=== PATIENT | female | born 1970 | race African-American/Black ===

== ENCOUNTER 2017-07-19 11:08 | Observation (INO) ==
--- NOTE | 2017-07-19 12:07 | XRay Report ---
History: Shortness of breath Date: 07/19/2017 Study: Chest x-ray PA and lateral Comparison exam: November 02, 2013 The cardiomediastinal silhouette and pulmonary vasculature are unremarkable. The lungs and pleural spaces are clear. The osseous structures are unremarkable. Surgical clips overlie the right upper quadrant as before. Impression: No acute cardiopulmonary process. No significant interval change PROCEDURE INTERPRETED AT [facility] DEPARTMENT OF RADIOLOGY Final Report Signed by: Dr. Hina Carroll
[2017-07-19] MEDS ORDERED: ASPIRIN 325 MG TABLET PO STA (12:23)
--- NOTE | 2017-07-19 12:28 | Emergency Department Note ---
Arrival - Arrival Chief Complaint: Shortness of Breath Stated Complaint: SOB,leg,arm and chest pain,weak ED Nursing Triage Note: Pt c/o SOB worse with exertion, weakness, chest heaviness, right arm pain and some nausea x 2 wks. Mode of Arrival: Ambulatory Limitations: No Limitations Source: Patient, RN Notes Reviewed Time Seen by Provider: 07/19/17 12:23 - History of Present Illness HPI Narrative: Patient is a 46-year-old black female routinely followed by Dr. Houston who is seen today complaining of a two-week history of left-sided chest pain worse with exertion. Patient does have some associated diaphoresis. She denies any nausea or vomiting. She does have some associated shortness of breath. Patient localizes the pain to the left anterior chest wall. Pain does not radiate. Onset (ago): week(s) (2) Consistency: intermittent Severity: moderate Quality: sharp Date of Last Menstrual Period: 2 wks ago Allergies/Adverse Reactions: Allergies Allergy/AdvReac Type Severity Reaction Status Date / Time hydrocodone Allergy ITCHING Verified 08/28/16 15:51 niacin Allergy ITCHING Verified 08/28/16 15:51 Home Medications: Home Medications Medication Instructions Recorded Confirmed Type No Known Home Medications [No 07/19/17 07/19/17 History Known Home Medications] Review of System - Review of System 12 point system: reviewed and no additional remarkable complaints except as stated - Review of System Constitutional: Absent: chills, fever Respiratory: Absent: cough Cardiovascular: Present: as per HPI Gastrointestinal: Absent: nausea, vomiting Medical,Surgical,& Family Hx - Medical History Cardio: History of: Hypertension Endocrine: History of: Dyslipidemia Musculoskeletal: History of: Back/Neck Problems - Social History Smoking Status: Current every day smoker Functional capacity: independent ambulation Exam Vital Signs: Vital Signs Temperature 97.0 F L 07/19/17 11:22 Pulse Rate 85 07/19/17 11:22 Respiratory Rate 16 07/19/17 11:22 Blood Pressure 156/92 07/19/17 11:22 O2 Sat by Pulse Oximetry 100 07/19/17 11:22 GENERAL: This is a well-nourished well-developed black female in no apparent distress. VITAL SIGNS: Reviewed HEENT: Head is atraumatic and normocephalic. Pupils are equal round react to light. Extraocular movements are intact. Oropharynx is benign with moist mucous membranes. NECK: Neck is soft and supple without tenderness. There are no masses. There is no lymphadenopathy. LUNGS: Lungs are clear to auscultation. Chest rises symmetrically. There is minimal tenderness to palpation in the anterior chest wall on the left. CV: Heart is regular rate and rhythm without murmurs rubs or gallops. ABDOMEN: Abdomen is soft, nontender to palpation. There are no abdominal abnormal masses palpated. There is no organomegaly. Bowel sounds are present and active. SKIN: Skin is warm and dry. No rash. EXTREMITIES: Patient has full range of motion without tenderness. There is no pedal edema. NEUROLOGIC: Awake alert and oriented 4. Cranial nerves II through XII are grossly intact. Motor is 5 over 5 in all extremities bilaterally. Course - Consultations Consultation #1: Discussed with Dr. Houston. Patient will be admitted to her service. Initial orders written for her. She will assume patient's care upon arrival to the [facility]. Time: 15:12 Results - Labs CBC & BMP: 07/19/17 13:08 Lab Results: I have reviewed the patients labs Labs: Laboratory Tests 07/19/17 07/19/17 13:08 13:10 Troponin I < 0.015 Urine Opiates Screen Negative Ur Barbiturates Screen Negative Ur Phencyclidine Scrn Negative U Amphetamine/Methamph Negative U Benzodiazepines Scrn Negative U Cocaine Metab Screen Negative U Cannabinoids Screen Positive H - EKG EKG results: interpreted by ERMD - Impressions EKG: Sinus tachycardia with a rate of 103, normal ST T waves, normal axis. - Diagnostic Findings Procedure: Chest x-ray: image reviewed by me (No infiltrates, no pleural effusions.) Disposition Clinical Impression: Chest pain, Nicotine addiction, Essential hypertension Case discussed with: patient Disposition: Still a Patient Condition: Stable Time of Disposition: 15:07
[2017-07-19 13:26] LABS: Apearance,Urine CLEAR (Clear); Bilirubin,Urine Negative (Negative); Blood, Urine Small mg/dL (Negative); Glucose,Urine (UA) Negative (Negative); Ketones,Urine Negative (Negative); Nitrite,Urine Negative (Negative); Protein,Urine Negative; Squamous Epithelial Cell,Urine Occasional /HPF (0-10); Urine Color Straw (Yellow); Urine Specific Gravity 1.003 (1.001-1.035); Urine Urobilinogen < 2.0 EU/DL (0.2-1.0); WBC,Urine <1 /HPF (0-6)
[2017-07-19 13:37] LABS: Barbiturates Screen,Urine Negative (Negative); Benzodiazepines Screen,Urine Negative (Negative); Cannabinoid Screen,Urine Positive (Negative); Opiate Screen,Urine Negative (Negative); Phencyclidine Screen,Urine Negative (Negative)
[2017-07-19 13:56] LABS: INR 1.1; PT Patient Result 11.1 SECS; Partial Thromboplastin Time 27.4 SECS (0-40)
[2017-07-19 14:13] LABS: Alanine Aminotransferase 30 U/L (13-56); Albumin 3.4 G/DL (3.4-5.0); Alkaline Phosphatase 80 U/L (45-117); Aspartate Amino Transferase 23 U/L (0-37); Bilirubin,Total < 0.39 MG/DL (0.2-1.0); Blood Urea Nitrogen 7 MG/DL (7-18); Calcium 9.5 MG/DL (8.5-10.1); Glucose 80 MG/DL (74-106); Osmolality,Calculated 275.4 MOS/KG (273-304); Sodium 140 MMOL/L (136-145); Total Protein 7.8 G/DL (6.4-8.3)
[2017-07-19] MEDS ORDERED: ASPIRIN 325 MG TABLET ONE (14:25)
--- NOTE | 2017-07-19 15:52 | Order Completion Report ---
See report scanned to EMR
--- NOTE | 2017-07-19 16:43 | Hospitalist History & Physical ---
Assessment and Plan - Time spent with patient Time spent with patient: Greater than 30 minutes (1) Chest pain Status: Acute Assessment and plan: 46-year-old -[place] female with history of nicotine abuse and anxiety admitted by the hospitalist service with complaints of intermittent chest pain associated with shortness of breath. Patient will be admitted to telemetry and get serial EKG and cardiac enzymes. Consult cardiology for possible stress test. Will also treat patient's anxiety as well and have her follow-up with physician at [facility] upon discharge. Dr. Silverio was seen and examine patient and further recommendations to follow. Current Visit: Yes (2) Nicotine addiction Status: Acute Current Visit: Yes History of Present Illness Chief complaint: Chest tightness History of present illness: Ms. Santos is a 46 year old -[place] female with history of nicotine abuse presenting to the ED with a 2 week history of intermittent chest pain associated with shortness of breath and sweating. Patient states approximately 2 weeks ago she started having some intermittent chest pain with any sort of activity. This was associated with shortness of breath, diaphoresis, bilateral hand and finger tingling, and bilateral lower extremity pain and weakness. Patient states the last chest pain she had was Wednesday but since then she describes it as chest tightness like somebody is sitting on her chest. She states she is also having some issues with anxiety over the last month due to her job. She used to see Dr. Houston at [facility] before she moved to the [facility] clinic. She states Dr. Houston had given her something for anxiety approximately a year ago but she does not remember what it was. Patient is decreased to 4 cigarettes per day from approximately 1 pack per day and she states her father of a heart attack at 47. Upon exam patient is visibly upset and crying. Patient is afebrile and vital signs are stable, coags okay, BMP okay with negative troponins, UA is negative, tox screen shows positive for marijuana. Patient's chest x-ray shows no acute process in her EKG shows sinus tachycardia with left atrial enlargement. Upon exam she is in normal sinus rhythm with heart rate in the 70s. After discussion with Dr. Brandt the ED physician and Dr. Reina the admitting hospitalist, it was agreed patient would be admitted for further evaluation and treatment. Patient has no home medications and she is a full code. Home Medications Medication Instructions Recorded Confirmed Type No Known Home Medications [No 07/19/17 07/19/17 History Known Home Medications] Allergies Allergy/AdvReac Type Severity Reaction Status Date / Time hydrocodone Allergy ITCHING Verified 08/28/16 15:51 niacin Allergy ITCHING Verified 08/28/16 15:51 Medical,Surgical,& Family Hx - Medical History Cardio: History of: Hypertension Endocrine: History of: Dyslipidemia Musculoskeletal: History of: Back/Neck Problems - Surgical History Abdominal Surgeries: Patient denies: Abdominal Surgery - Family History Family History: Reports;: Family Heart Disease - Social History Smoking Status: Current every day smoker Have you smoked in the last 12 months: Yes Frequency of Alcohol Use: None Type of Drug Use: Marijuana Marital Status: Single Lives With:: Alone Functional capacity: independent ambulation 12 point system: reviewed and no additional remarkable complaints except as stated Exam - Constitutional Vitals: Period Temp Pulse Resp BP Sys/Simmons Pulse Ox Last 24 Hr 97.0 F-97.0 F 71-86 16-20 132-156/65-92 99-100 Exam: Constitutional System: Mild distress. Actively currently No tremulousness. Head: Normocephalic, atraumatic. Ears, Nose and Throat System: No evidence of Otitis or Mastoiditis. No epistaxis or discharge Eyes System: Pupils equal, round, and reactive. Extraocular muscles intact. Neck: Supple, without adenopathy, No jugular venous distention. No thyromegaly, neck mass, or prior surgery apparent. Respiratory System: Chest clear to auscultation. Cardiovascular System: Heart with regular rate and rhythm. No murmur. GI System: Abdomen soft, nontender. Normo active bowel sounds present. Musculoskeletal System: limbs with no pedal edema. Full distal pulses. Neurological System: No discernable sensory deficit. No aphasia Psychiatric System: Conversation is rational Results - Labs CBC & BMP: 07/19/17 13:08 Lab Results: I have reviewed the past 24 hour labs - EKG EKG results: sinus rhythm - Diagnostic Findings Procedure: Chest x-ray: report reviewed by me (No acute process)
[2017-07-19] MEDS ORDERED: ONDANSETRON 4 MG/2 ML VIAL IV PRN (18:13)
[2017-07-19] MEDS ORDERED: ENOXAPARIN 40 MG/0.4 ML SYRINGE SUBCUT SCH (18:13)
[2017-07-19] MEDS ORDERED: ACETAMINOPHEN 325 MG TABLET PO PRN (18:13)
[2017-07-19] MEDS ORDERED: NITROGLYCERIN SL 0.4 MG TABLET SL PRN (18:13)
[2017-07-19] MEDS ORDERED: LORazepam 0.5 MG TABLET PO PRN (18:13)
[2017-07-19 20:50] LABS: Basophils % 0.1 % (0.0-0.8); Eosinophils # 0.2 10*3/uL (0.0-0.87); Eosinophils % 2.2 % (0.00-10.9); Hematocrit 30.4 VOL% (35.7-47.0); Hemoglobin 10.1 GM/DL (12.0-16.0); Immature Granulocytes % 0.3 %; Immature Granulocytes Absolute 0.02 #; Lymphocytes # 2.4 10*3/uL (1.4-4.0); Lymphocytes % 31.7 % (21.3-54.2); Mean Corpuscular HGB Conc 33.2 GM/DL (32-36); Mean Corpuscular Hemoglobin 28 PG (27-34); Mean Corpuscular Volume 84.7 FL (87-102); Monocytes # 0.9 10*3/uL (0.11-0.8); Neutrophils % 53.7 % (38.7-73.9); Platelet Count 329 T/CUMM (130-400); Red Blood Count 3.59 MC/CUMM (3.8-5.5); Red Cell Distribution Width 16.7 % (9.3-17.3); White Blood Count 7.4 T/CUMM (4-12)
[2017-07-19] MEDS: NICOTINE 21 MG/24 HR PATCH TRANSDERM SCH (21:20)
[2017-07-20 07:02] LABS: Cholesterol 167 MG/DL (50-200); Free T4 (Free Thyroxine) 1.91 NG/DL (0.76-1.46); HDL Cholesterol 36 MG/DL (40-60); Risk Ratio 4.64; Thyroid Stimulating Hormone < 0.005 uIU/ml (0.358-3.74); Triglycerides 76 MG/DL (2-150); VLDL CHOLESTEROL 15.2 MG/DL
[2017-07-20] MEDS ORDERED: ASPIRIN EC 325 MG TABLET PO SCH ×2 (09:00→17:40)
[2017-07-20] MEDS ORDERED: PANTOPRAZOLE 40 MG TABLET PO SCH (09:00)
[2017-07-20] MEDS: NICOTINE 21 MG/24 HR PATCH TRANSDERM SCH (09:08)
[2017-07-20] MEDS ORDERED: PROPRANOLOL 20 MG TABLET PO SCH (12:30)
[2017-07-20 16:47] VITALS: BP 136/76
--- NOTE | 2017-07-20 17:39 | Order Completion Report ---
See report scanned to EMR
--- NOTE | 2017-07-20 17:39 | Cardiology Consult Note ---
Derek Hoffman Lesley, SANDY, am scribing for, and in the presence of, Mian Ventura MD 17:39. Assessment and Plan - Time spent with patient Time spent with patient: Greater than 30 minutes (Record review, assessment, document) (1) Anemia Status: Acute Assessment and plan: SEE PLAN LISTED BELOW Current Visit: Yes (2) Chest pain Status: Acute Assessment and plan: SEE PLAN LISTED BELOW Current Visit: Yes (3) Essential hypertension Status: Chronic Assessment and plan: SEE PLAN LISTED BELOW Current Visit: Yes (4) Nicotine addiction Status: Chronic Assessment and plan: SEE PLAN LISTED BELOW Current Visit: Yes (5) Hyperthyroidism Status: Acute Assessment and plan: SEE PLAN LISTED BELOW Current Visit: Yes (6) Dyslipidemia Status: Chronic Assessment and plan: SEE PLAN LISTED BELOW Current Visit: Yes History of Present Illness - Data of Consult Patient: new to practice Consult date: 07/20/17 Requesting Physician: Shreyas Silverio - Consult Narrative Reason for consult: chest pain History of present illness: [employer]ER: Dr. Ventura ([facility]) Ms. Santos is a 46 year old BF, who presents to the ER with complaints of chest tightness and heaviness that started 2 weeks ago. She reports chest heaviness and tightness that comes and goes, and worsens with exertion. She states symptoms improve with rest. She associates the episodes with "feeling hot" and increased sweating particularly in her hands, she also complains of heart palpitations, worsening panic attacks, fatigue, and nausea for the last 2 weeks. She does relate increased stress at work recently. She states she eats ice constantly to cool off, especially while she is at work. She also notes leg weakness at times while ambulating, she does not associate this with these episodes. She denies cardiac history, but does have a family history of coronary artery disease. Her dad had an TN in his 40s and of an TN at age 53. Her mom has a pacemaker and possible thyroid issues, her brother has heart disease. Past medical history includes hypertension, dyslipidemia, chronic low back pain, anxiety. She states she stopped her medications for hypertension and dyslipidemia last year after significant weight loss. Past surgical includes cholecystectomy, tubal ligation, section. She notes a 20-pack -year history of smoking, denies alcohol use, denies drug use. Cardiac risk factors include smoking, overweight, sedentary lifestyle, significant family history. The patient was interviewed and examined on telemetry floor this morning. No acute distress noted, she denies chest tightness or heaviness since admission. Cardiac biomarkers have remained negative, no ischemic changes on EKGs. Labs reveal anemia, with Hgb 10 and Hct 30, pt. denies a history of anemia. Blood pressure has remained normal, other than being slightly elevated upon arrival to ER. Lipid panel is unremarkable. TSH is low and free T4 elevated, no history of hyperthyroidism reported by the patient. UDS positive for THC. Otherwise labs unremarkable. Plan is to obtain an echocardiogram and initiate low-dose propranolol for symptom management. IMPRESSION AND PLAN: CHEST PAIN - resolved, cardiac biomarkers negative, EKGs without ischemic changes. Low suspicion for ACS. HYPERTHYROIDISM - new onset, likely contributing to symptomatology. Start propranolol 20 mg twice daily, may titrate as an outpatient. No evidence of cardiomyopathy ANEMIA - new onset HYPERTENSION - she stopped meds after losing weight, this is controlled. DYSLIPIDEMIA - improved after weight loss. TOBACCO ABUSE - merits of smoking cessation have been discussed and encouraged with the patient. Please call with further questions. If the chest pain recurs, an outpatient stress test may be considered, please call [facility] in this case to set up an appointment. CC: Petar Houston MD - Home Medications and Allergies Home Medications: Home Medications Medication Instructions Recorded Confirmed Type No Known Home Medications [No 07/19/17 07/19/17 History Known Home Medications] Allergies/Adverse Reactions: Allergies Allergy/AdvReac Type Severity Reaction Status Date / Time hydrocodone Allergy ITCHING Verified 08/28/16 15:51 niacin Allergy ITCHING Verified 08/28/16 15:51 - Constitutional Constitutional: Present: excessive sweating, fatigue, lethargy, weakness. Absent: anorexia, chills - EENT Nose, mouth and throat: Absent: dysphagia, epistaxis - Cardiovascular Cardiovascular: Present: chest pain with activity, diaphoresis, palpitations. Absent: chest pain at rest, dyspnea, dyspnea on exertion, edema, radiating jaw, neck or arm pain, lightheadedness - Respiratory Respiratory: Absent: cough, dyspnea, hemoptysis, dyspnea on exertion - Gastrointestinal Gastrointestinal: Present: nausea. Absent: abdominal pain, change in bowel habits, coffee ground emesis, dyspepsia, dysphagia, hematemesis, hematochezia, melena, vomiting - Genitourinary Genitourinary: Absent: difficulty urinating - Musculoskeletal Musculoskeletal: Present: back pain - Neurological Neurological: Absent: abnormal gait, abnormal speech, behavioral changes, confusion, syncope - Psychiatric Psychiatric: Present: anxiety - Endocrine Endocrine: Present: fatigue, heat intolerance - Hematologic/Lymphatic Hematologic/Lymphatic: Absent: easy bleeding Medical,Surgical,& Family Hx - Medical History Cardio: History of: Hypertension Psychological: History of: Anxiety Disorders Endocrine: History of: Dyslipidemia Musculoskeletal: History of: Back/Neck Problems Other: History of: Miscellaneous Medical Problems - Surgical History Thoracic Surgeries: Patient denies;: Organ Transplant Abdominal Surgeries: Surgical HX of: Cholecystectomy Reproductive Surgeries: Surgical HX of;: Section, Tubal Ligation Patient denies;: Gynecologic Surgery - Family History Family History: Reports;: Family Cancer (breast cancer, aunt), Family Heart Disease, Family Hypertension (mother) - Social History Smoking Status: Current every day smoker Have you smoked in the last 12 months: Yes Time spent discussing smoking cessation with patient: 3 to 10 minutes Frequency of Alcohol Use: None Type of Drug Use: Marijuana Functional capacity: independent ambulation Physical Examination Vital Signs Temp Pulse Resp BP Pulse Ox 97.0 F L 85 16 156/92 100 07/19/17 11:22 07/19/17 11:22 07/19/17 11:22 07/19/17 11:22 07/19/17 11:22 Exam: General: Appears well with no apparent distress. Pleasant and cooperative. Appears comfortable. HEENT: PERRL, normocephalic, atraumatic. Mucous membranes moist. No jaundice noted. Conjunctiva moist and clear, sclerae anicteric. Neck: No JVD, no thyromegaly no lymphadenopathy noted. No carotid bruit appreciated. Cardiac: Regular rate and rhythm. No murmur rub or gallop. PMI is nondisplaced. Lungs: Clear to auscultation without accessory muscle use to assist the respiratory pattern. No oxygen required. Abdomen: Soft, bowel sounds normoactive. Nontender and nondistended. No abdominal bruit or thrill noted. No masses noted. Musculoskeletal: No fluid collection. Full range of motion is noted. Extremities: No clubbing, cyanosis noted. No edema noted. Upper extremity pulses 2+. Lower extremity pulses 2+. Capillary refill less than 3 seconds. Skin: Warm and dry. No unusual lesions or rashes. No skin breakdown appreciated. Neuro: Awake, alert and oriented 3. Moves all extremities well without hemiparesis or paralysis. No essential tremor is appreciated. Result/EKG - Labs CBC & BMP: 07/19/17 20:13 07/19/17 13:08 Lab Results: I have reviewed the past 24 hour labs Labs: Laboratory Results - last 24 hr 07/19/17 07/19/17 07/19/17 13:08 13:08 13:08 WBC RBC Hgb Hct MCV MCH MCHC RDW Plt Count MPV Neut % (Auto) Lymph % (Auto) Barber % (Auto) Eos % (Auto) Baso % (Auto) Neut # (Auto) Lymph # (Auto) Barber # (Auto) Eos # (Auto) Baso # (Auto) Immature Gran % Nucleated RBC % Immature Gran # Nucleated RBCs # Immature Plt Fraction INR 1.1 PT Patient/Control Mix 11.1 Circ Anticoag PTT 27.4 Sodium 140 Potassium 4.0 Chloride 108 H Carbon Dioxide 26 Anion Gap 10.0 BUN 7 Creatinine 0.70 GFR Calculation 131 BUN/Creatinine Ratio 10.00 Glucose 80 Calculated Osmolality 275.4 Calcium 9.5 Total Bilirubin < 0.39 AST 23 ALT 30 Alkaline Phosphatase 80 Troponin I < 0.015 Total Protein 7.8 Albumin 3.4 Globulin 4.4 H Albumin/Globulin Ratio 0.7 L Triglycerides Cholesterol LDL Cholesterol VLDL Cholesterol HDL Cholesterol Heart Disease Risk Ratio Free T4 TSH 3rd Generation Urine Color Urine Appearance Urine pH Ur Specific [place] Urine Protein Urine Glucose (UA) Urine Ketones Urine Blood Urine Nitrate Urine Bilirubin Urine Urobilinogen Urine Leukocytes Urine WBC Ur Squamous Epith Cells Ur Culture Indicated? Urine Opiates Screen Ur Barbiturates Screen Ur Phencyclidine Scrn U Amphetamine/Methamph U Benzodiazepines Scrn U Cocaine Metab Screen U Cannabinoids Screen 07/19/17 07/19/17 07/19/17 13:10 13:10 16:18 WBC RBC Hgb Hct MCV MCH MCHC RDW Plt Count MPV Neut % (Auto) Lymph % (Auto) Barber % (Auto) Eos % (Auto) Baso % (Auto) Neut # (Auto) Lymph # (Auto) Barber # (Auto) Eos # (Auto) Baso # (Auto) Immature Gran % Nucleated RBC % Immature Gran # Nucleated RBCs # Immature Plt Fraction INR PT Patient/Control Mix Circ Anticoag PTT Sodium Potassium Chloride Carbon Dioxide Anion Gap BUN Creatinine GFR Calculation BUN/Creatinine Ratio Glucose Calculated Osmolality Calcium Total Bilirubin AST ALT Alkaline Phosphatase Troponin I < 0.015 Total Protein Albumin Globulin Albumin/Globulin Ratio Triglycerides Cholesterol LDL Cholesterol VLDL Cholesterol HDL Cholesterol Heart Disease Risk Ratio Free T4 TSH 3rd Generation Urine Color Straw Urine Appearance Clear Urine pH 6.0 Ur Specific [place] 1.003 Urine Protein Negative Urine Glucose (UA) Negative Urine Ketones Negative Urine Blood Small Urine Nitrate Negative Urine Bilirubin Negative Urine Urobilinogen < 2.0 H Urine Leukocytes Negative Urine WBC <1 Ur Squamous Epith Cells Occasional Ur Culture Indicated? Not indicated Urine Opiates Screen Negative Ur Barbiturates Screen Negative Ur Phencyclidine Scrn Negative U Amphetamine/Methamph Negative U Benzodiazepines Scrn Negative U Cocaine Metab Screen Negative U Cannabinoids Screen Positive H 07/19/17 07/19/17 07/20/17 20:13 20:13 05:16 WBC 7.4 RBC 3.59 L Hgb 10.1 L Hct 30.4 L MCV 84.7 L MCH 28 MCHC 33.2 RDW 16.7 Plt Count 329 MPV 10.0 Neut % (Auto) 53.7 Lymph % (Auto) 31.7 Barber % (Auto) 12.0 Eos % (Auto) 2.2 Baso % (Auto) 0.1 Neut # (Auto) 4.0 Lymph # (Auto) 2.4 Barber # (Auto) 0.9 H Eos # (Auto) 0.2 Baso # (Auto) 0.0 Immature Gran % 0.3 Nucleated RBC % 0.0 Immature Gran # 0.02 Nucleated RBCs # 0.00 Immature Plt Fraction 0.0 INR PT Patient/Control Mix Circ Anticoag PTT Sodium Potassium Chloride Carbon Dioxide Anion Gap BUN Creatinine GFR Calculation BUN/Creatinine Ratio Glucose Calculated Osmolality Calcium Total Bilirubin AST ALT Alkaline Phosphatase Troponin I < 0.015 Total Protein Albumin Globulin Albumin/Globulin Ratio Triglycerides 76 Cholesterol 167 LDL Cholesterol 113.0 VLDL Cholesterol 15.2 HDL Cholesterol 36 L Heart Disease Risk Ratio 4.64 Free T4 1.91 H TSH 3rd Generation < 0.005 L Urine Color Urine Appearance Urine pH Ur Specific [place] Urine Protein Urine Glucose (UA) Urine Ketones Urine Blood Urine Nitrate Urine Bilirubin Urine Urobilinogen Urine Leukocytes Urine WBC Ur Squamous Epith Cells Ur Culture Indicated? Urine Opiates Screen Ur Barbiturates Screen Ur Phencyclidine Scrn U Amphetamine/Methamph U Benzodiazepines Scrn U Cocaine Metab Screen U Cannabinoids Screen - Diagnostic Findings Procedure: Chest x-ray: report reviewed by me - EKG EKG results: interpreted by me, sinus rhythm Lorenzo Hoffman Attila, MD, personally performed the services described in this documentation, ascribed by Ling Reed NP in my presence, and it is both accurate and complete [id number] .
--- NOTE | 2017-07-20 17:43 | Discharge Summary ---
Hospital Course - Hospital Course Hospital Course: This is a 46-year-old lady with history of obesity and hypertension. The patient has made an effort to lose weight over the last year and been successful. She return to work after a years absence due to low back pain. The patient was at home in her usual state of health. She had some left sided atypical chest discomfort after work yesterday. She came to the hospital. Myocardial infarction was ruled out by EKG and enzymes. The patient had cardiology evaluation with Dr. Prakash. He did not feel that she was at increased risk of obstructive coronary disease at this time. On routine evaluation the patient was noted to have reduced TSH with normal T4 test and this is consistent with mild hyperthyroidism. The patient does not have tachycardia which is a rather sensitive test of moderate hyperthyroidism. Dr. Prakash did think that the patient's symptoms may be related to hypothyroidism and suggested that she begin taking propranolol and have this titrated as outpatient through her regular physician at [facility]. On the date of discharge, chest is clear and heart has regular rate and rhythm. Patient medications were reconciled upon admission, and again at the time of discharge. The patient was screened for tobacco use and found to be a occasional smoker. The patient was given 4 minutes of tobacco avoidance education. The patient's medical decsion maker is themself, and when asked, they asked to be Full code. Discharge Time was 32 minutes, including final examination, evaluation and planning, education, reconciliation of medications, writing prescriptions, coordinating care with ed case manager, and preparing discharge documentation. - Time spent with patient Time with patient DS: Greater than 30 minutes Time spent discussing smoking cessation with patient: 3 to 10 minutes (4 minutes ) Diagnosis - Discharge Diagnosis (1) Hyperthyroidism Status: Acute Discharge Plan - Discharge Data Disposition: Disch To Home/Self Care Condition at Discharge: Stable Activity: resume usual activities as tolerated - Discharge Medications New Propranolol Tab [Inderal Tab] 20 mg PO BID #100 tablet - Follow Up or Referral Follow Up: [facility] [Provider Group] - 1 Month - Forms/Instructions Exam - Constitutional Vitals: Period Temp Pulse Resp BP Sys/Simmons Pulse Ox Last 24 Hr 97.1 F-98.9 F 73-83 16-20 114-152/55-76 98-100 Discharge Results Procedures and tests throughout hospitalization: Pending Orders 07/21/17 04:00 BMP w/ Mg [Basic Metabolic Panel w/Mg] IN AM CBC [Comp Blood Count Auto Diff] IN AM Lipid Panel IN AM Labs on day of discharge: Labs from last 24 hours 07/20/17 07/19/17 07/19/17 05:16 20:13 20:13 WBC 7.4 RBC 3.59 L Hgb 10.1 L Hct 30.4 L MCV 84.7 L MCH 28 MCHC 33.2 RDW 16.7 Plt Count 329 MPV 10.0 Neut % (Auto) 53.7 Lymph % (Auto) 31.7 Posey % (Auto) 12.0 Eos % (Auto) 2.2 Baso % (Auto) 0.1 Neut # (Auto) 4.0 Lymph # (Auto) 2.4 Posey # (Auto) 0.9 H Eos # (Auto) 0.2 Baso # (Auto) 0.0 Immature Gran % 0.3 Nucleated RBC % 0.0 Immature Gran # 0.02 Nucleated RBCs # 0.00 Immature Plt Fraction 0.0 Troponin I < 0.015 Triglycerides 76 Cholesterol 167 LDL Cholesterol 113.0 VLDL Cholesterol 15.2 HDL Cholesterol 36 L Heart Disease Risk Ratio 4.64 Free T4 1.91 H TSH 3rd Generation < 0.005 L DS: Provider Date of admission: 07/19/17 15:07 Primary care physician: . No PCP Attending physician on admission: Petar Houston MD Consults: 07/19/17 18:13 Consult to Physician [CONS] Routine Comment: cp Consulting Provider: Cardiology - [facility] Consult to Specialist Group: Cardiology Person Notified: Rosita Date Notified: 07/20/17 Time Notified: 09:30 07/19/17 18:52 Consult to Dietitian [CONS] Routine Reason for Dietitian: Supplements and/or Snacks Discharging clinician: Akin Jules MD
--- NOTE | 2017-07-20 17:45 | Order Completion Report ---
See report scanned to EMR
== END 2017-07-20 18:34 | disposition home or self-care (01) ==
LOC: N.ED 11:08 → N.EDINP 11:08 → N.TELES 16:20
PROVIDERS: ADMIT Family Medicine; ATTEND Family Medicine

== ENCOUNTER 2018-01-01 06:23 | Observation (INO) ==
[2018-01-01] MEDS ORDERED: FUROSEMIDE 100 MG/10 ML VIAL IV STA (06:43)
[2018-01-01] MEDS ORDERED: LORazepam 2 MG/1 ML VIAL IV STA (06:43)
[2018-01-01] MEDS ORDERED: MORPHINE 10 MG/1 ML VIAL IV STA (06:44)
[2018-01-01] MEDS ORDERED: DILTIAZEM 50 MG/10 ML VIAL IV STA (06:45)
[2018-01-01 07:04] LABS: Basophils % 0.2 % (0.0-0.8); Eosinophils # 0.4 10*3/uL (0.0-0.87); Eosinophils % 4.5 % (0.00-10.9); Hematocrit 34.3 VOL% (35.7-47.0); Hemoglobin 11.4 GM/DL (12.0-16.0); Immature Granulocytes % 0.2 %; Immature Granulocytes Absolute 0.02 #; Lymphocytes # 3.7 10*3/uL (1.4-4.0); Lymphocytes % 45.2 % (21.3-54.2); Mean Corpuscular HGB Conc 33.2 GM/DL (32-36); Mean Corpuscular Hemoglobin 28 PG (27-34); Mean Corpuscular Volume 83.1 FL (87-102); Mean Platelet Volume 10.5 FL (9.6-12.0); Monocytes # 0.7 10*3/uL (0.11-0.8); Monocytes % 8.7 % (1.7-12.7); Neutrophils # 3.4 10*3/uL (1.4-7.4); Neutrophils % 41.2 % (38.7-73.9); Platelet Count 279 T/CUMM (130-400); Red Blood Count 4.13 MC/CUMM (3.8-5.5); Red Cell Distribution Width 16.1 % (9.3-17.3); White Blood Count 8.2 T/CUMM (4-12)
[2018-01-01] MEDS ORDERED: MORPHINE 2 MG/1 ML SYRINGE IV STA (07:05)
[2018-01-01] MEDS ORDERED: MORPHINE 2 MG/1 ML SYRINGE ONE (07:09)
[2018-01-01] MEDS ORDERED: FUROSEMIDE 40 MG/4 ML VIAL ONE (07:09)
[2018-01-01 07:15] LABS: PT Patient Result 10.8 SECS; Partial Thromboplastin Time 26.1 SECS (0-40)
[2018-01-01 07:32] LABS: Albumin 3.3 G/DL (3.4-5.0); Bilirubin,Total 0.5 MG/DL (0.2-1.0); Osmolality,Calculated 282.1 MOS/KG (273-304); Potassium 3.4 MMOL/L (3.5-5.1); Total Protein 6.9 G/DL (6.4-8.3)
[2018-01-01 07:33] LABS: Troponin I Only 0.046 NG/ML (0.00-0.045)
[2018-01-01 07:40] LABS: Apearance,Urine CLOUDY (Clear); Bilirubin,Urine Negative (Negative); Blood, Urine Negative (Negative); Glucose,Urine (UA) Negative (Negative); Hyaline Casts,Urine 4 /LPF (0-3); Ketones,Urine Negative (Negative); Mucus,Urine Few /LPF (Occasional); Nitrite,Urine Negative (Negative); Protein,Urine 30 MG/DL; RBC,Urine 4 /HPF (0-4); Squamous Epithelial Cell,Urine Few /HPF (0-10); Urine Color Yellow (Yellow); Urine Specific Gravity 1.017 (1.001-1.035); Urine Urobilinogen < 2.0 EU/DL (0.2-1.0); WBC,Urine 1 /HPF (0-6)
[2018-01-01 07:54] LABS: Barbiturates Screen,Urine Negative (Negative); Benzodiazepines Screen,Urine Negative (Negative); Cannabinoid Screen,Urine Positive (Negative); Opiate Screen,Urine Negative (Negative); Phencyclidine Screen,Urine Negative (Negative)
[2018-01-01] MEDS ORDERED: ONDANSETRON 4 MG/2 ML VIAL IV PRN (09:29)
[2018-01-01] MEDS ORDERED: ACETAMINOPHEN 325 MG TABLET PO PRN (09:29)
[2018-01-01] MEDS ORDERED: MORPHINE 2 MG/1 ML SYRINGE IV PRN (09:29)
[2018-01-01] MEDS ORDERED: LORazepam 0.5 MG TABLET PO PRN (09:31)
[2018-01-01] MEDS ORDERED: NITROGLYCERIN SL 0.4 MG TABLET SL PRN (09:31)
[2018-01-01] MEDS: DOCUSATE SODIUM 100 MG CAPSULE PO SCH (20:57)
[2018-01-01] MEDS ORDERED: ENOXAPARIN 40 MG/0.4 ML SYRINGE SUBCUT SCH (21:00)
[2018-01-02 06:48] LABS: Calcium 9.4 MG/DL (8.5-10.1); Potassium 4.1 MMOL/L (3.5-5.1); Risk Ratio 3.65; VLDL CHOLESTEROL 14.4 MG/DL
[2018-01-02] MEDS: DOCUSATE SODIUM 100 MG CAPSULE PO SCH (08:01)
[2018-01-02] MEDS ORDERED: LISINOPRIL 20 MG TABLET PO SCH (09:00)
[2018-01-02] MEDS ORDERED: PANTOPRAZOLE 40 MG TABLET PO SCH (09:00)
[2018-01-02] MEDS ORDERED: FUROSEMIDE 20 MG TABLET PO SCH (09:00)
[2018-01-02 11:53] VITALS: BP 90/70
== END 2018-01-02 12:43 | disposition home or self-care (01) ==
LOC: N.ED 06:23 → N.EDINP 06:23 → N.5E 10:55
PROVIDERS: ADMIT Family Medicine; ATTEND Family Medicine

== ENCOUNTER 2018-01-16 22:23 | Inpatient (IN) ==
[2018-01-16] MEDS ORDERED: LORazepam 2 MG/1 ML VIAL IV STA (23:05)
[2018-01-16 23:16] LABS: Basophils % 0.2 % (0.0-0.8); Eosinophils # 0.3 10*3/uL (0.0-0.87); Eosinophils % 2.8 % (0.00-10.9); Hematocrit 34.6 VOL% (35.7-47.0); Hemoglobin 11.4 GM/DL (12.0-16.0); Immature Granulocytes % 0.3 %; Immature Granulocytes Absolute 0.03 #; Lymphocytes # 3.3 10*3/uL (1.4-4.0); Mean Corpuscular HGB Conc 32.9 GM/DL (32-36); Mean Corpuscular Hemoglobin 28 PG (27-34); Mean Corpuscular Volume 83.8 FL (87-102); Mean Platelet Volume 10.8 FL (9.6-12.0); Monocytes % 10.9 % (1.7-12.7); Neutrophils # 4.4 10*3/uL (1.4-7.4); Neutrophils % 48.8 % (38.7-73.9); Platelet Count 284 T/CUMM (130-400); Red Blood Count 4.13 MC/CUMM (3.8-5.5); Red Cell Distribution Width 15.6 % (9.3-17.3)
[2018-01-16 23:22] LABS: PT Patient Result 10.9 SECS; Partial Thromboplastin Time 22.7 SECS (0-40)
[2018-01-16 23:32] LABS: Alanine Aminotransferase 34 U/L (13-56); Albumin 3.6 G/DL (3.4-5.0); Alkaline Phosphatase 101 U/L (45-117); Aspartate Amino Transferase 48 U/L (0-37); Bilirubin,Total < 0.39 MG/DL (0.2-1.0); Blood Urea Nitrogen 14 MG/DL (7-18); CKMB % 7.6 %; Calcium 10.2 MG/DL (8.5-10.1); Glucose 134 MG/DL (74-106); Osmolality,Calculated 279.5 MOS/KG (273-304); Potassium 3.9 MMOL/L (3.5-5.1); Sodium 139 MMOL/L (136-145); Total Protein 7.5 G/DL (6.4-8.3)
[2018-01-16] MEDS ORDERED: LORazepam 2 MG/1 ML VIAL ONE (23:32)
[2018-01-16 23:33] LABS: Troponin I Only 0.505 NG/ML (0.00-0.045)
[2018-01-16] MEDS ORDERED: SODIUM CHLORIDE 0.9% 1,000 ML IV STA (23:48)
[2018-01-16] MEDS ORDERED: METOPROLOL TARTRATE 5 MG/5 ML VIAL IV STA (23:49)
[2018-01-16] MEDS ORDERED: METOPROLOL TARTRATE 5 MG/5 ML VIAL IV ONE (23:51)
[2018-01-17] MEDS ORDERED: ASPIRIN 325 MG TABLET PO STA (00:27)
[2018-01-17] MEDS ORDERED: MORPHINE 4 MG/1 ML VIAL IV PRN (00:27)
[2018-01-17] MEDS ORDERED: ACETAMINOPHEN 325 MG TABLET PO PRN (00:27)
[2018-01-17] MEDS ORDERED: ONDANSETRON 4 MG/2 ML VIAL IV PRN (00:27)
[2018-01-17] MEDS ORDERED: ASPIRIN 325 MG TABLET ONE (00:43)
[2018-01-17] MEDS: SODIUM CHLORIDE 0.9% 1,000 ML IV SCH ×2 (03:03→13:51)
[2018-01-17 03:41] LABS: Apearance,Urine CLEAR (Clear); Bilirubin,Urine Negative (Negative); Blood, Urine Small mg/dL (Negative); Glucose,Urine (UA) Negative (Negative); Ketones,Urine Negative (Negative); Mucus,Urine Occasional /LPF (Occasional); Nitrite,Urine Negative (Negative); Protein,Urine Negative; RBC,Urine <1 /HPF (0-4); Squamous Epithelial Cell,Urine Occasional /HPF (0-10); Urine Color Yellow (Yellow); Urine Specific Gravity 1.009 (1.001-1.035); Urine Urobilinogen < 2.0 EU/DL (0.2-1.0); WBC,Urine 1 /HPF (0-6)
[2018-01-17 04:22] LABS: Barbiturates Screen,Urine Negative (Negative); Benzodiazepines Screen,Urine Positive (Negative); Cannabinoid Screen,Urine Negative (Negative); Opiate Screen,Urine Negative (Negative); Phencyclidine Screen,Urine Negative (Negative)
[2018-01-17] MEDS ORDERED: MAGNESIUM OXIDE 400 MG TABLET PO PRN (07:49)
[2018-01-17] MEDS ORDERED: ALPRAZolam 0.5 MG TABLET PO PRN (07:49)
[2018-01-17] MEDS ORDERED: LISINOPRIL 20 MG TABLET PO SCH (09:00)
[2018-01-17] MEDS ORDERED: CARVEDILOL 6.25 MG TABLET PO SCH (09:00)
[2018-01-17] MEDS ORDERED: LISINOPRIL 5 MG TABLET PO SCH (09:00)
[2018-01-17] MEDS ORDERED: ENOXAPARIN 40 MG/0.4 ML SYRINGE SUBCUT SCH (09:00)
[2018-01-17] MEDS: PANTOPRAZOLE 40 MG TABLET PO SCH (09:07)
[2018-01-17] MEDS: DOCUSATE SODIUM 100 MG CAPSULE PO SCH ×2 (09:08→20:59)
[2018-01-17] MEDS: busPIRone 5 MG TABLET PO SCH ×2 (09:08→20:58)
[2018-01-17 09:09] LABS: T4 (Thyroxine) 23.2 UG/DL (4.7-13.3); Thyroid Stimulating Hormone < 0.005 uIU/ml (0.358-3.74)
[2018-01-17 10:33] LABS: CKMB % 11.2 %
[2018-01-17 10:35] LABS: Troponin I Only 1.42 NG/ML (0.00-0.045)
[2018-01-17] MEDS ORDERED: methIMAzole 5 MG TABLET PO SCH (11:00)
[2018-01-17] MEDS ORDERED: ENOXAPARIN 40 MG/0.4 ML SYRINGE SUBCUT ONE (12:41)
[2018-01-17] MEDS ORDERED: ASPIRIN EC 325 MG TABLET PO ONE (12:42)
[2018-01-17] MEDS ORDERED: MAGNESIUM SULF RIDER 2 GM in PREMIX 1 EACH IV PRN (12:43)
[2018-01-17] MEDS ORDERED: POTASSIUM CHLORIDE RIDER 10 MEQ in PREMIX 1 EACH IV PRN (12:43)
[2018-01-17 13:04] LABS: CKMB % 10.6 %
[2018-01-17 13:06] LABS: Troponin I Only 1.04 NG/ML (0.00-0.045)
[2018-01-17] MEDS: ENOXAPARIN 80 MG/0.8 ML SYRINGE SUBCUT SCH (20:59)
[2018-01-17] MEDS: BISOPROLOL 5 MG TABLET PO SCH (20:59)
[2018-01-18] MEDS ORDERED: SODIUM CHLORIDE 0.9% 1,000 ML IV SCH (03:00)
[2018-01-18 05:28] LABS: Albumin 2.7 G/DL (3.4-5.0); Bilirubin,Total 0.4 MG/DL (0.2-1.0); Calcium 9.4 MG/DL (8.5-10.1); Osmolality,Calculated 281.1 MOS/KG (273-304); Potassium 4.1 MMOL/L (3.5-5.1); Total Protein 5.8 G/DL (6.4-8.3)
[2018-01-18 05:29] LABS: Troponin I Only 0.672 NG/ML (0.00-0.045)
[2018-01-18] MEDS ORDERED: DIAZEPAM 5 MG TABLET PO ONE (08:00)
[2018-01-18] MEDS ORDERED: diphenhydrAMINE CAP 25 MG CAPSULE PO ONE (08:00)
[2018-01-18] MEDS: PANTOPRAZOLE 40 MG TABLET PO SCH (08:05)
[2018-01-18] MEDS: ENOXAPARIN 80 MG/0.8 ML SYRINGE SUBCUT SCH (08:05)
[2018-01-18] MEDS: ASPIRIN EC 81 MG TABLET PO SCH (08:05)
[2018-01-18] MEDS: BISOPROLOL 5 MG TABLET PO SCH ×2 (08:06→20:27)
[2018-01-18] MEDS ORDERED: LIDOCAINE 1% 20 ML VIAL ONE (08:42)
[2018-01-18] MEDS ORDERED: MEPERIDINE 25 MG/1 ML VIAL ONE (08:42)
[2018-01-18] MEDS ORDERED: MIDAZOLAM 2 MG/2 ML VIAL ONE (08:43)
[2018-01-18] MEDS ORDERED: NITROGLYCERIN DRIP 50 MG/250 ML BOTTLE IV ONE (09:35)
[2018-01-18] MEDS: busPIRone 5 MG TABLET PO SCH ×2 (10:40→20:27)
[2018-01-18] MEDS: ACETAMINOPHEN 325 MG TABLET PO SCH ×2 (10:40→20:26)
[2018-01-18] MEDS: DOCUSATE SODIUM 100 MG CAPSULE PO SCH ×2 (10:40→20:26)
[2018-01-18] MEDS: hydroCHLOROthiazide 12.5 MG CAPSULE PO SCH (10:40)
[2018-01-18] MEDS: GABAPENTIN 100 MG CAPSULE PO SCH ×3 (10:40→20:27)
[2018-01-18 10:49] LABS: Risk Ratio 3.73; VLDL CHOLESTEROL 14.8 MG/DL
[2018-01-18] MEDS ORDERED: BISOPROLOL 5 MG TABLET PO ONE (12:42)
[2018-01-18 13:20] LABS: Apearance,Urine CLEAR (Clear); Bilirubin,Urine Negative (Negative); Blood, Urine Small mg/dL (Negative); Glucose,Urine (UA) Negative (Negative); Ketones,Urine Negative (Negative); Mucus,Urine Occasional /LPF (Occasional); Nitrite,Urine Negative (Negative); Protein,Urine Negative; RBC,Urine <1 /HPF (0-4); Squamous Epithelial Cell,Urine Occasional /HPF (0-10); Urine Color Straw (Yellow); Urine Specific Gravity 1.053 (1.001-1.035); Urine Urobilinogen < 2.0 EU/DL (0.2-1.0); WBC,Urine <1 /HPF (0-6)
[2018-01-18] MEDS ORDERED: ROSUVASTATIN 10 MG TABLET PO SCH (21:00)
[2018-01-19 05:25] LABS: Eosinophils # 0.3 10*3/uL (0.0-0.87); Eosinophils % 5.9 % (0.00-10.9); Hematocrit 27.5 VOL% (35.7-47.0); Hemoglobin 8.9 GM/DL (12.0-16.0); Immature Granulocytes % 0.2 %; Immature Granulocytes Absolute 0.01 #; Lymphocytes % 38.4 % (21.3-54.2); Mean Corpuscular HGB Conc 32.4 GM/DL (32-36); Mean Corpuscular Hemoglobin 27 PG (27-34); Mean Corpuscular Volume 83.8 FL (87-102); Mean Platelet Volume 11.8 FL (9.6-12.0); Monocytes # 0.7 10*3/uL (0.11-0.8); Monocytes % 13.2 % (1.7-12.7); Neutrophils # 2.2 10*3/uL (1.4-7.4); Neutrophils % 42.3 % (38.7-73.9); Platelet Count 206 T/CUMM (130-400); Red Blood Count 3.28 MC/CUMM (3.8-5.5); Red Cell Distribution Width 15.3 % (9.3-17.3); White Blood Count 5.2 T/CUMM (4-12)
[2018-01-19 06:07] LABS: Albumin 2.7 G/DL (3.4-5.0); Bilirubin,Total 0.8 MG/DL (0.2-1.0); Calcium 9.2 MG/DL (8.5-10.1); Osmolality,Calculated 279.1 MOS/KG (273-304); Potassium 4.7 MMOL/L (3.5-5.1); Total Protein 5.8 G/DL (6.4-8.3)
[2018-01-19] MEDS: ASPIRIN EC 81 MG TABLET PO SCH (08:59)
[2018-01-19] MEDS ORDERED: amLODIPine 2.5 MG TABLET PO SCH (09:00)
[2018-01-19] MEDS: GABAPENTIN 100 MG CAPSULE PO SCH (09:00)
[2018-01-19] MEDS ORDERED: SERTRALINE 25 MG TABLET PO ONE (09:00)
[2018-01-19] MEDS: busPIRone 5 MG TABLET PO SCH (09:00)
[2018-01-19] MEDS: hydroCHLOROthiazide 12.5 MG CAPSULE PO SCH (09:00)
[2018-01-19] MEDS: BISOPROLOL 5 MG TABLET PO SCH (09:00)
[2018-01-19] MEDS ORDERED: ENOXAPARIN 40 MG/0.4 ML SYRINGE SUBCUT SCH (09:00)
[2018-01-19] MEDS: DOCUSATE SODIUM 100 MG CAPSULE PO SCH (09:01)
[2018-01-19] MEDS: ACETAMINOPHEN 325 MG TABLET PO SCH (09:01)
[2018-01-19] MEDS: PANTOPRAZOLE 40 MG TABLET PO SCH (09:01)
[2018-01-19 11:57] VITALS: BP 117/55
[2018-01-19] MEDS ORDERED: SERTRALINE 25 MG TABLET PO SCH (21:00)
== END 2018-01-19 14:55 | disposition home or self-care (01) | DRG 282 ==
LOC: N.ED 22:23 → N.EDINP 01-17 00:27 → N.4E 01-17 01:41 → N.TELEN 01-17 14:17
PROVIDERS: ADMIT Family Medicine; ATTEND Internal Medicine
PROC: CLCCHCL (ICD-10-PCS; 2018-01-18 09:15)

== ENCOUNTER 2018-03-02 13:18 | Observation (INO) ==
[2018-03-02] MEDS ORDERED: ALUM/MAG/SIMETH/LIDO VISC 1:1 30 ML BOTTLE PO STA (13:26)
[2018-03-02] MEDS ORDERED: NITROGLYCERIN 2% OINT 1 INCH/GM PACK TOP STA (13:26)
[2018-03-02] MEDS ORDERED: ASPIRIN 325 MG TABLET PO STA (13:26)
[2018-03-02] MEDS ORDERED: NITROGLYCERIN SL 0.4 MG TABLET SL PRN (13:26)
[2018-03-02] MEDS ORDERED: ENOXAPARIN 100 MG/ML SYRINGE SUBCUT STA (13:26)
[2018-03-02] MEDS ORDERED: MORPHINE 4 MG/1 ML VIAL IV PRN (13:26)
[2018-03-02] MEDS ORDERED: ONDANSETRON 4 MG/2 ML VIAL IV PRN ×2 (13:26→14:56)
[2018-03-02 13:35] LABS: Basophils % 0.1 % (0.0-0.8); Eosinophils # 0.3 10*3/uL (0.0-0.87); Eosinophils % 4.3 % (0.00-10.9); Hematocrit 33.3 VOL% (35.7-47.0); Hemoglobin 10.8 GM/DL (12.0-16.0); Immature Granulocytes % 0.3 %; Immature Granulocytes Absolute 0.02 #; Lymphocytes # 2.7 10*3/uL (1.4-4.0); Mean Corpuscular HGB Conc 32.4 GM/DL (32-36); Mean Corpuscular Hemoglobin 27 PG (27-34); Mean Corpuscular Volume 84.1 FL (87-102); Mean Platelet Volume 10.5 FL (9.6-12.0); Monocytes # 0.9 10*3/uL (0.11-0.8); Monocytes % 11.6 % (1.7-12.7); Neutrophils # 3.9 10*3/uL (1.4-7.4); Neutrophils % 49.7 % (38.7-73.9); Platelet Count 316 T/CUMM (130-400); Red Blood Count 3.96 MC/CUMM (3.8-5.5); Red Cell Distribution Width 15.9 % (9.3-17.3); White Blood Count 7.9 T/CUMM (4-12)
[2018-03-02 13:52] LABS: PT Patient Result 10.7 SECS; Partial Thromboplastin Time 25.7 SECS (0-40)
[2018-03-02 13:53] LABS: Alanine Aminotransferase 25 U/L (13-56); Albumin 3.3 G/DL (3.4-5.0); Alkaline Phosphatase 128 U/L (45-117); Aspartate Amino Transferase 21 U/L (0-37); Bilirubin,Total < 0.39 MG/DL (0.2-1.0); Blood Urea Nitrogen 7 MG/DL (7-18); Glucose 85 MG/DL (74-106); Osmolality,Calculated 277.3 MOS/KG (273-304); Potassium 3.8 MMOL/L (3.5-5.1); Sodium 141 MMOL/L (136-145); Total Protein 7.6 G/DL (6.4-8.3)
[2018-03-02] MEDS ORDERED: ACETAMINOPHEN 325 MG TABLET PO PRN (14:56)
[2018-03-02] MEDS ORDERED: SODIUM CHLORIDE 0.9% 1,000 ML IV SCH (15:00)
[2018-03-02 15:58] LABS: Barbiturates Screen,Urine Negative (Negative); Benzodiazepines Screen,Urine Negative (Negative); Cannabinoid Screen,Urine Negative (Negative); Opiate Screen,Urine Negative (Negative); Phencyclidine Screen,Urine Negative (Negative)
[2018-03-02 16:05] LABS: Apearance,Urine CLEAR (Clear); Bacteria,Urine Occasional /HPF (Few); Bilirubin,Urine Negative (Negative); Blood, Urine Negative (Negative); Glucose,Urine (UA) Negative (Negative); Ketones,Urine Negative (Negative); Mucus,Urine Occasional /LPF (Occasional); Nitrite,Urine Negative (Negative); Protein,Urine Negative; RBC,Urine 1 /HPF (0-4); Squamous Epithelial Cell,Urine Occasional /HPF (0-10); Urine Color Yellow (Yellow); Urine Specific Gravity 1.006 (1.001-1.035); Urine Urobilinogen < 2.0 EU/DL (0.2-1.0); WBC,Urine 1 /HPF (0-6)
[2018-03-02] MEDS: ENOXAPARIN 40 MG/0.4 ML SYRINGE SUBCUT SCH (18:05)
[2018-03-02] MEDS: NICOTINE 14 MG/24 HR PATCH TRANSDERM SCH (18:26)
[2018-03-02] MEDS: PANTOPRAZOLE 40 MG TABLET PO SCH (18:26)
[2018-03-02] MEDS ORDERED: MAGNESIUM OXIDE 400 MG TABLET PO PRN (20:37)
[2018-03-02] MEDS ORDERED: MIRTAZAPINE 15 MG TABLET PO SCH (21:00)
[2018-03-02] MEDS ORDERED: ROSUVASTATIN 10 MG TABLET PO SCH (21:00)
[2018-03-02] MEDS: clonazePAM 0.5 MG TABLET PO SCH (21:53)
[2018-03-03] MEDS ORDERED: DOCUSATE SODIUM 100 MG CAPSULE PO SCH (09:00)
[2018-03-03] MEDS ORDERED: PROPRANOLOL LA 80 MG CAPSULE PO SCH (09:00)
[2018-03-03] MEDS ORDERED: ASPIRIN EC 81 MG TABLET PO SCH (09:00)
[2018-03-03] MEDS: NICOTINE 14 MG/24 HR PATCH TRANSDERM SCH (09:01)
[2018-03-03] MEDS: clonazePAM 0.5 MG TABLET PO SCH (09:01)
[2018-03-03] MEDS: PANTOPRAZOLE 40 MG TABLET PO SCH (09:01)
[2018-03-03] MEDS: ENOXAPARIN 40 MG/0.4 ML SYRINGE SUBCUT SCH (15:52)
[2018-03-03 16:25] VITALS: BP 129/66
== END 2018-03-03 17:34 | disposition home or self-care (01) ==
LOC: EDUNIT# → EDBD → N.EDINP 13:18 → N.ED 13:18 → N.EDINP 17:30 → N.TELEN 18:00
PROVIDERS: ADMIT Family Medicine; ATTEND Family Medicine

== ENCOUNTER 2022-09-01 12:15 | Inpatient (IN) ==
[2022-09-01 13:38] LABS: Basophils % 0.2 % (0.0-0.8); Eosinophils # 0.1 10*3/uL (0.0-0.87); Eosinophils % 1.3 % (0.00-10.9); Hematocrit 43.2 VOL% (35.7-47.0); Hemoglobin 14.4 GM/DL (12.0-16.0); Immature Granulocytes % 0.2 %; Immature Granulocytes Absolute 0.02 #; Lymphocytes # 3.3 10*3/uL (1.4-4.0); Lymphocytes % 34.9 % (21.3-54.2); Mean Corpuscular HGB Conc 33.3 GM/DL (32-36); Mean Corpuscular Volume 97.1 FL (87-102); Mean Platelet Volume 10.5 FL (9.6-12.0); Monocytes # 0.5 10*3/uL (0.11-0.8); Neutrophils % 58.4 % (38.7-73.9); Platelet Count 337 T/CUMM (130-400); Red Blood Count 4.45 MC/CUMM (3.8-5.5); Red Cell Distribution Width 13.9 % (9.3-17.3); White Blood Count 9.3 T/CUMM (4-12)
[2022-09-01 13:51] LABS: Alanine Aminotransferase 24 U/L (13-56); Albumin 3.7 G/DL (3.4-5.0); Alkaline Phosphatase 78 U/L (45-117); Aspartate Amino Transferase 19 U/L (0-37); Bilirubin,Total < 0.39 MG/DL (0.20-1.00); Blood Urea Nitrogen 8 MG/DL (7-18); Calcium 9.5 MG/DL (8.5-10.1); Carbon Dioxide 27 MMOL/L (21-32); Chloride 109 MMOL/L (98-107); Glucose 121 MG/DL (74-106); Osmolality,Calculated 275.5 MOS/KG (273-304); Sodium 139 MMOL/L (136-145); Total Protein 7.7 G/DL (6.4-8.2)
[2022-09-01] MEDS ORDERED: ASPIRIN 325 MG TABLET PO STA (13:52)
[2022-09-01] MEDS ORDERED: ENOXAPARIN 100 MG/ML SYRINGE SUBCUT STA (13:52)
[2022-09-01] MEDS ORDERED: ACETAMINOPHEN 325 MG TABLET PO PRN (15:36)
[2022-09-01] MEDS ORDERED: ONDANSETRON 4 MG/2 ML VIAL IV PRN (15:36)
[2022-09-01] MEDS ORDERED: GLUCAGON 1 MG VIAL IM PRN ×2 (15:36→17:33)
[2022-09-01] MEDS ORDERED: DEXTROSE 10% 250 ML BAG IV PRN ×2 (15:40→17:33)
[2022-09-01] MEDS: carvediloL 6.25 MG TABLET PO SCH (17:20)
[2022-09-01] MEDS: INSULIN REGULAR 100 UNIT/ML SUBCUT SCH ×4 (17:21→21:39)
[2022-09-01] MEDS ORDERED: POTASSIUM CHLORIDE RIDER 10 MEQ/100 ML PREMIX IV PRN (17:33)
[2022-09-01] MEDS ORDERED: MAGNESIUM SULF RIDER 4 GM/100 ML PREMIX IV PRN (17:33)
[2022-09-01] MEDS ORDERED: MAGNESIUM SULF RIDER 2 GM/50 ML PREMIX IV PRN (17:33)
[2022-09-01] MEDS ORDERED: DEXTROSE 50% 25 GM/50 ML VIAL IV PRN (17:33)
[2022-09-01] MEDS: cloNIDine 0.1 MG TABLET PO SCH (21:22)
[2022-09-01] MEDS: DOCUSATE SODIUM 100 MG CAPSULE PO SCH (21:22)
[2022-09-02 05:47] LABS: Basophils % 0.2 % (0.0-0.8); Eosinophils # 0.1 10*3/uL (0.0-0.87); Eosinophils % 1.6 % (0.00-10.9); Hematocrit 37.1 VOL% (35.7-47.0); Hemoglobin 12.5 GM/DL (12.0-16.0); Immature Granulocytes % 0.3 %; Immature Granulocytes Absolute 0.03 #; Lymphocytes # 3.7 10*3/uL (1.4-4.0); Lymphocytes % 40.9 % (21.3-54.2); Mean Corpuscular HGB Conc 33.7 GM/DL (32-36); Mean Corpuscular Volume 95.1 FL (87-102); Mean Platelet Volume 10.4 FL (9.6-12.0); Monocytes # 0.8 10*3/uL (0.11-0.8); Monocytes % 8.3 % (1.7-12.7); Neutrophils % 48.7 % (38.7-73.9); Platelet Count 289 T/CUMM (130-400); Red Cell Distribution Width 13.7 % (9.3-17.3)
[2022-09-02 06:19] LABS: Alanine Aminotransferase 22 U/L (13-56); Albumin 3.1 G/DL (3.4-5.0); Alkaline Phosphatase 65 U/L (45-117); Aspartate Amino Transferase 13 U/L (0-37); Bilirubin,Total < 0.39 MG/DL (0.20-1.00); Blood Urea Nitrogen 9 MG/DL (7-18); Calcium 9.1 MG/DL (8.5-10.1); Carbon Dioxide 27 MMOL/L (21-32); Chloride 111 MMOL/L (98-107); Glucose 90 MG/DL (74-106); Osmolality,Calculated 279.3 MOS/KG (273-304); Potassium 3.9 MMOL/L (3.5-5.1); Sodium 141 MMOL/L (136-145); Total Protein 6.8 G/DL (6.4-8.2)
[2022-09-02] MEDS ORDERED: LEVOTHYROXINE 125 MCG TABLET PO SCH (06:30)
[2022-09-02] MEDS: INSULIN REGULAR 100 UNIT/ML SUBCUT SCH ×6 (08:00→15:57)
[2022-09-02] MEDS ORDERED: PANTOPRAZOLE 40 MG TABLET PO SCH (09:00)
[2022-09-02] MEDS: DOCUSATE SODIUM 100 MG CAPSULE PO SCH (09:15)
[2022-09-02] MEDS: cloNIDine 0.1 MG TABLET PO SCH (09:15)
[2022-09-02] MEDS: carvediloL 6.25 MG TABLET PO SCH ×2 (09:15→16:09)
[2022-09-02] MEDS ORDERED: ASPIRIN EC 81 MG TABLET PO SCH (15:00)
[2022-09-02 16:25] VITALS: BP 127/78
== END 2022-09-02 18:12 | disposition home or self-care (01) | DRG 392 ==
LOC: N.ED 12:15 → N.EDINP 15:29 → N.TELES 17:06
PROVIDERS: ADMIT Family Medicine; ATTEND Family Medicine